=== PATIENT | male | born 1985 | race American Indian/Alaskan Native ===

== ENCOUNTER 2020-07-11 16:13 | Emergency (ER) | payer SELFPAY ==
--- NOTE | 2020-07-11 16:50 | Emergency Department Report ---
ED Animal Bite HPI - General Chief Complaint: Animal Bite Stated Complaint: BUG BITE Time Seen by Provider: 07/11/20 16:50 Source: patient Mode of arrival: Ambulatory Limitations: No Limitations - Related Data Previous Rx's Medication Instructions Recorded Last Taken Type Dicyclomine [Bentyl] 20 mg PO QID #20 tablet 07/08/15 Unknown Rx Promethazine [Phenergan TAB] 25 mg PO Q6HR PRN #10 tab 07/08/15 Unknown Rx Allergies Allergy/AdvReac Type Severity Reaction Status Date / Time No Known Allergies Allergy Verified 07/08/15 09:17 ED Review of Systems ROS: Stated complaint: BUG BITE Other details as noted in HPI ED Past Medical Hx - Past Medical History Previous Medical History?: No - Surgical History Past Surgical History?: No - Social History Smoking Status: Never Smoker Substance Use Type: None - Medications Home Medications: Home Medications Medication Instructions Recorded Confirmed Last Taken Type Dicyclomine [Bentyl] 20 mg PO QID #20 tablet 07/08/15 Unknown Rx Promethazine [Phenergan TAB] 25 mg PO Q6HR PRN #10 tab 07/08/15 Unknown Rx ED Physical Exam - General Limitations: No Limitations ED Course Vital Signs 07/11/20 07/11/20 16:31 16:32 Temperature 98.3 F Pulse Rate 77 Respiratory 18 Rate Blood Pressure 108/70 Critical care attestation.: If time is entered above; I have spent that time in minutes in the direct care of this critically ill patient, excluding procedure time. ED Disposition Condition: Stable
[2020-07-11 17:15] VITALS: BP 118/62
--- NOTE | 2020-07-11 17:27 | Emergency Department Report ---
- General Chief complaint: Animal Bite Stated complaint: BUG BITE Time Seen by Provider: 07/11/20 16:50 Source: patient Mode of arrival: Ambulatory Limitations: No Limitations - History of Present Illness Initial comments: 35 yr old male presents to ED c/o rash. Pt states he had this pruritic rash for about 4-5 mths. He states he has been itching all over but he states the rash is mainly on his arms/neck/face, trunk and mildly groin. He states he feels like stuff is crawling underneath his skin. He states when he gets exposed to heat it gets worse and "worms' come out. He states he has beein picking at his skin trying to get them out. He states he was able to get one out (which he currently has wrapped in piece of plastic - to me appears to be skin). Patient he has been trying multiple over the counter medications without relief. He states he is concerned he may have scabies because he is homeless and leaves in a house with 7 people. He denies any pain, fever, chills or any other associated symptoms. He denies any past medical hx including denied any psych hx. He denies drug or etoh use. MD complaint: rash -: month(s) Location: face, neck, back, LUE, RUE, genitals - Related Data Previous Rx's Medication Instructions Recorded Last Taken Type Dicyclomine [Bentyl] 20 mg PO QID #20 tablet 07/08/15 Unknown Rx Promethazine [Phenergan TAB] 25 mg PO Q6HR PRN #10 tab 07/08/15 Unknown Rx Permethrin 5% [Acticin 5% CREAM] 1 applicatio TP ONCE #2 tube 07/11/20 Unknown Rx hydrOXYzine HCL [Atarax] 25 mg PO Q6HR PRN #30 tablet 07/11/20 Unknown Rx Allergies Allergy/AdvReac Type Severity Reaction Status Date / Time No Known Allergies Allergy Verified 07/08/15 09:17 Abscess Boil HPI - HPI Chief Complaint: Animal Bite Stated Complaint: BUG BITE Time Seen by Provider: 07/11/20 16:50 Home Medications: Previous Rx's Medication Instructions Recorded Last Taken Type Dicyclomine [Bentyl] 20 mg PO QID #20 tablet 07/08/15 Unknown Rx Promethazine [Phenergan TAB] 25 mg PO Q6HR PRN #10 tab 07/08/15 Unknown Rx Permethrin 5% [Acticin 5% CREAM] 1 applicatio TP ONCE #2 tube 07/11/20 Unknown Rx hydrOXYzine HCL [Atarax] 25 mg PO Q6HR PRN #30 tablet 07/11/20 Unknown Rx Allergies/Adverse Reactions: Allergies Allergy/AdvReac Type Severity Reaction Status Date / Time No Known Allergies Allergy Verified 07/08/15 09:17 ED Review of Systems ROS: Stated complaint: BUG BITE Other details as noted in HPI Constitutional: denies: chills, fever Eyes: denies: eye pain, eye discharge, vision change ENT: denies: ear pain, throat pain Respiratory: denies: cough, shortness of breath, wheezing Cardiovascular: denies: chest pain, palpitations Gastrointestinal: denies: abdominal pain, nausea, diarrhea Skin: rash, lesions Neurological: denies: headache, weakness, paresthesias Psychiatric: denies: anxiety, depression, auditory hallucinations, homicidal thoughts, suicidal thoughts ED Past Medical Hx - Past Medical History Previous Medical History?: No - Surgical History Past Surgical History?: No - Social History Smoking Status: Never Smoker Substance Use Type: None - Medications Home Medications: Home Medications Medication Instructions Recorded Confirmed Last Taken Type Dicyclomine [Bentyl] 20 mg PO QID #20 tablet 07/08/15 Unknown Rx Promethazine [Phenergan TAB] 25 mg PO Q6HR PRN #10 tab 07/08/15 Unknown Rx Permethrin 5% [Acticin 5% CREAM] 1 applicatio TP ONCE #2 tube 07/11/20 Unknown Rx hydrOXYzine HCL [Atarax] 25 mg PO Q6HR PRN #30 tablet 07/11/20 Unknown Rx ED Physical Exam - General Limitations: No Limitations General appearance: alert - Head Head exam: Present: atraumatic, normal inspection - Eye Eye exam: Present: normal appearance, PERRL, EOMI Pupils: Present: normal accommodation - ENT ENT exam: Present: normal exam - Neck Neck exam: Present: normal inspection, full ROM - Respiratory Respiratory exam: Present: normal lung sounds bilaterally - Cardiovascular Cardiovascular Exam: Present: regular rate, normal rhythm, normal heart sounds - GI/Abdominal GI/Abdominal exam: Present: soft. Absent: distended, tenderness - Neurological Exam Neurological exam: Present: alert, oriented X3, CN II-XII intact - Psychiatric Psychiatric exam: Present: normal affect, normal mood. Absent: anxious, flat affect, homicidal ideation, suicidal ideation - Skin Skin exam: Present: rash (excoriated areas noted to posterior neck, underneath right eye and Upper extermities and hands. He does have a hyperpigemented macular dry rash noted to posterior neck and bilaeral groing area; He does have papular hyerpigment mildly excoriated areas to forearms and upper back) ED Course Vital Signs 07/11/20 07/11/20 07/11/20 16:31 16:32 17:11 Temperature 98.3 F Pulse Rate 77 82 Respiratory 18 16 Rate Blood Pressure 108/70 Blood Pressure 118/62 [Left] O2 Sat by Pulse 100 Oximetry ED Medical Decision Making - Medical Decision Making Pt presents with c/o generalized pruritis, rash, and feeling like worms are crawling in skin. He states he is concern for scabies because he is homeless and lives with 7 other people. Rash on exam not exactly consistent with scapies; pt has been picking at his skin and his symptoms could be more psych /drug use related but giving his current living situation, it will not hurt to treat for possible associated scabies. Pt currently mental stable, he is neurologically intact, he is not SI/HI, and he is well appearing, not toxic, not in any acute distress, well hydrated with stable vs. work up admission or consult not indicated at this time. Discussed tx plan with patient. He will be given referral to PCP. Pt stable at time of d/c. Critical care attestation.: If time is entered above; I have spent that time in minutes in the direct care of this critically ill patient, excluding procedure time. ED Disposition Clinical Impression: Dermatitis, Skin excoriation Disposition: DC-01 TO HOME OR SELFCARE Is pt being admited?: No Does the pt Need Aspirin: No Condition: Stable Instructions: Contact Dermatitis (ED), Excoriation Disorder (GEN) Additional Instructions: take medications as prescribed. follow up with outside dealer sales representative/pcp if not better after tx. Prescriptions: Permethrin 5% [Acticin 5% CREAM] 1 applicatio TP ONCE #2 tube hydrOXYzine HCL [Atarax] 25 mg PO Q6HR PRN #30 tablet PRN Reason: Itching Referrals: CARBUCCIA,THOMAS, MD [Staff Physician] - 3-5 Days Time of Disposition: 17:39
== END 2020-07-11 18:50 | disposition home or self-care (01) ==
LOC: ED 16:13
DX: L30.8 Other specified dermatitis (principal); F42.4 Excoriation (skin-picking) disorder
CPT/HCPCS: 99282